=== PATIENT | female | born 1995 | race Caucasian/White ===

== ENCOUNTER 2019-10-15 14:27 | Emergency (ER) | payer BC ==
[~2019-10-15] VITALS: Ht 157.5 cm; Wt 72.7 kg
[2019-10-15] MEDS ORDERED: OXCARBAZEPINE600 M1 PO (14:39)
[2019-10-15] MEDS ORDERED: EFFEXOR XR150 M1 PO (14:39)
[2019-10-15] MEDS ORDERED: AUGMENTIN 875-1 EAC1 PO (15:22)
[2019-10-15 15:45] VITALS: BP 99/43
== END 2019-10-15 15:45 | disposition home or self-care (01) ==
LOC: ED 14:27
DX: S61.431A Puncture wound without foreign body of right hand, initial encounter (principal); L03.113 Cellulitis of right upper limb; Z23 Encounter for immunization; W55.01XA Bitten by cat, initial encounter
CPT/HCPCS: 90714; J0696

== ENCOUNTER 2019-10-16 13:39 | Inpatient (IN) | payer BC ==
[~2019-10-16] VITALS: Ht 157.5 cm; Wt 80.8 kg
[2019-10-16 13:43] VITALS: BP 140/96
[2019-10-16 14:23] VITALS: BP 140/96
[2019-10-16 15:10] VITALS: BP 118/81
--- NOTE | 2019-10-16 15:35 | NUR ---
PATIENT ADMITTED TO INPATIENT FROM [facility] FOR CAT BITE INDUCED CELLULITIS TO THE RIGHT HAND. PATIENT'S HAND IS RED AND SWOLLEN WITH PEN MARKINGS FROM YESTERDAY NOTED AND SWELLING IS BEYOND THOSE BORDERS. PATIENT REPORTS DULL PAIN TO HAND RELIEVED BY TYLENOL. PATIENT STARTED ON AUGMENTIN YESTERDAY ORALLY AND SENT HOME. RETURNS TODAY WITH SYMPTOMS WORSENING AND ADMITTED FOR IV ANTIBIOTICS. PATIENT IS AOX3, MOVES ALL EXTREMETIES WELL, NO SHORTNESS OF BREATH, NO COMPLAINTS OF FEVER OR CHILLS NOTED. PATIENT HAS FAMILY AND FRIENDS AT BEDSIDE AND SOMEONE PLANS TO CONTINUE TO STAY WITH PATIENT FOR MOST OF INPATIENT STAY. PATIENT DENIES ANY QUESTIONS OR CONCERNS AT THIS TIME. ANSWERED MOST OF FAMILY QUESTIONS ASKED.
[2019-10-16 18:05] VITALS: BP 112/77
--- NOTE | 2019-10-16 18:05 | NUR ---
Patient's mom and sister present. Patient reports throbbing pain in R hand at a 7/10. It is dull but very uncomfortable. Acetaminophen 325mg provided. Educated on acetaminophen and dosing and pain management. Patient confirmed understanding. R hand swollen and warm to touch.
--- NOTE | 2019-10-16 18:57 | NUR ---
PATIENT RESTING IN ROOM WITH FAMILY/FRIENDS AT BEDSIDE. PATIENT REPORTS SHE IS DOING WELL AND FEELING BETTER. OUTLINE DRAWINGS X2 ON RIGHT HAND. INNER LINE IS THICKER AND WAS DRAWN YESTERDAY 10/15/19; TODAY I MAITE A THINNER LINE TO CHAVEZ THAT THE ERYTHEMA WORSENED - THIS LINE IS DATED. PATIENT HAS OWN MEDICATIONS AND PERSONAL BELONGINGS IN HER POSSESSION IN HER ROOM, DENIES WANTING TO USE SAFE. COMPLAINS OF PAIN AND ASKED FOR TYLENOL WHEN IT IS THROBBING; OTHERWISE SHE STATES IT IS TOLERABLE. PATIENT REQUESTED IV TO BE IN RIGHT HAND/ARM DUE TO HAVING USE OF HER LEFT HAND/ARM. PATIENT HAS ROOM PRIVILEDGES AND AMBULATES VERY WELL WITHOUT ASSIST.
--- NOTE | 2019-10-16 19:19 | NUR ---
REPORT GIVEN TO NARA MATA
[2019-10-16 23:00] VITALS: BP 118/79
[2019-10-17 03:06] VITALS: BP 103/67
--- NOTE | 2019-10-17 06:15 | NUR ---
PATIENT CALLED NURSE TO THE ROOM AROUND 0555 AND STATES "MY IV FELL OUT" CATHETER TIP INTACT, NO ACTIVE BLEEDING NOTED FROM INSERTION SITE, NURSE TALKS WITH PATIENT AND HER MOTHER ABOUT WHY IT SHOULD BE PUT BACK IN AND THEY AGREE, AFTER NURSES FIRST FAILED ATTEMPTED TO START IV, PATIENT BEGINS TO FEEL QUESY AND ASKS TO GO TO THE BATHROOM, VOIDS AND HAS A BOWEL MOVEMENT, STATES SHE FEELS BETTER AFTERWARD AND ALLOWS NURSE TO TRY AGAIN, JUST AFTER NURSE GETS THE IV IN, PATIENT VOMITS ABOUT 200 CC OF CLEAR LIQUID EMESIS, IS PALE AND SWEATY, ENCOURAGED TO TRY TO REST AFTER IV TAPED DOWN AND FLUIDS RESTARTED, PATIENT TAKES A COUPLE SIPS OF WATER AND RESTS, CALL LIGHT WITHIN REACH, MOM AT BEDSIDE, SIDE RAILS UP X 2, WILL CONTINUE TO MONITOR
[2019-10-17 06:31] VITALS: BP 128/85
--- NOTE | 2019-10-17 06:45 | NUR ---
PATIENT CALLS NURSE AGAIN, IS CONTINUING TO BE NAUSEATED, AMBULATES TO THE BATHROOM WHERE SHE HAS A LARGE SOFT BROWN BM, CLAIMS TO FEEL A LITTLE BETTER AFTERWARD, SALTINE CRACKERS PROVIDED PER REQUEST, IS KEEPING WATER DOWN SO FAR, WILL CONTINUE TO MONITOR, IS NO LONGER PALE OR SWEATY
[2019-10-17 07:04] LABS: HEMATOCRIT 40.7 % (37.0-47.0); HEMOGLOBIN 13.4 g/dL (12.5-16.0); LYMPH# 1.7 (1.50-4.00); MEAN CELL VOLUME 90 fl (78-100); MEAN CORPUSCULAR HEMOGLOBIN 30 pg (27-31); MEAN CORPUSCULAR HGB CONC 33 g/dL (33-37); MEAN PLATELET VOLUME 10.8 fl (7.4-10.4); MONO # 0.5 (0.20-0.80); NEU # 6.4 (1.40-6.50); PLATELET COUNT 224 K/mm3 (130-400); RED BLOOD COUNT 4.51 M/mm3 (4.10-5.30); RED CELL DISTRIBUTION WIDTH 12.9 % (11.5-14.5); WHITE BLOOD COUNT 8.6 K/mm3 (4.8-10.8)
--- NOTE | 2019-10-17 08:30 | NUR ---
Report provided by NARA Rubio. Patient states she is still slightly nauseas. Banana and zofran helped some. R hand has no redness, slight inflammation around puncture of palm and pain at a 0/10.
[2019-10-17 11:00] VITALS: BP 108/74
--- NOTE | 2019-10-17 12:10 | NUR ---
Patient sitting in bed. States she thinks she may be nauseous b/c she normally smokes marijuana daily and has not smoked in 3 days. She is nauseous again but not as bad as this am. Zofran to be provided as prescribed.
--- NOTE | 2019-10-17 14:28 | NUR ---
Patient provided discharge instructions and educated on signs/symptoms that demonstrate worsening and to return to the ER. Patient stated she just put her hand in warm water and drained out some of the perulence from the palm. Patient reports no pain and nausea minimal. Patient anxious to get home. Patient signed both discharge instructions and belongings sheet. Dad and patient escorted to exit.
== END 2019-10-17 14:28 | disposition home or self-care (01) | DRG 603 ==
LOC: MED/SURG 13:39
PROVIDERS: ADMIT Physician Assistant
DX: L03.113 Cellulitis of right upper limb (principal); W55.01XA Bitten by cat, initial encounter; Z23 Encounter for immunization; F32.9 Major depressive disorder, single episode, unspecified
CPT/HCPCS: J1650; J2405; J2543; J7030

== ENCOUNTER → 2019-10-16 | Outpatient (CLI) | payer BC ==
[2019-10-15 15:45] VITALS: BP 99/43
[~2019-10-16] MED LIST: AUGMENTIN 875-1 EAC1 PO; EFFEXOR XR150 M1 PO; OXCARBAZEPINE600 M1 PO
[2019-10-16 12:40] LABS: HEMATOCRIT 47.5 % (37.0-47.0); HEMOGLOBIN 15.3 g/dL (12.5-16.0); MEAN PLATELET VOLUME 10.7 fl (7.4-10.4); RED BLOOD COUNT 5.31 M/mm3 (4.10-5.30); RED CELL DISTRIBUTION WIDTH 12.9 % (11.5-14.5); WHITE BLOOD COUNT 10.2 K/mm3 (4.8-10.8)
[2019-10-16 12:47] LABS: POTASSIUM 3.8 mmol/L (3.5-5.1)
[2019-10-16 12:48] LABS: CALCIUM 10.1 mg/dL (8.3-10.5)
== END ==
LOC: RAD 12:22
PROVIDERS: Nurse Practitioner
DX: S61.451A Open bite of right hand, initial encounter (principal); L03.113 Cellulitis of right upper limb; W55.01XA Bitten by cat, initial encounter